=== PATIENT | female | born 1985 | race Caucasian/White ===

== ENCOUNTER 2017-04-05 10:01 | Emergency (ER) | payer OTHER ==
--- NOTE | ~2017-04-05 | US98 ---
[facility] A Service of [facility] & [facility] RADIOLOGY TEXT RESULTS PATIENT: MALINA TRIANA LOCATION: [facility] : 81 UNIT #: [id number] AGE: [address]: Elen Gonsales MD SEX: F ORDER DR: [id number] [facility] [address] [place], [place] [address] [id number] E MR#: [id number] Acc #: [id number] NAME: MALINA TRIANA : 1985 SEX: F STUDY DATE/TIME: 04/05/2017 11:39 UNIT: [facility] ROOM: STUDY DESCRIPTION: US Pelvic Non-OB Complete Attending Physician: Elen Gonsales M.D. Ordering Physician: Elen Gonsales M.D. Primary Care Physician: No Primary Care Physician MEDICAL IMAGING REPORT This report is preliminary unless electronic signature is present EXAM Pelvic ultrasound INDICATIONS Right lower quadrant pain for 5 days; it keeps getting worse. Patient has a history of an appendectomy. TECHNIQUE Jackson-scale, color Doppler, and spectral Doppler waveform analysis was performed through the pelvis both transabdominally and transvaginally. FINDINGS Endometrium appears thickened and heterogeneous, measuring up to about 1.4 cm. This may simply be related to the phase of menstrual cycle, but certainly is at the upper limits of normal. I would suggest short-term sonographic followup in 6 weeks. Both ovaries demonstrate normal color-Doppler flow. No adnexal masses are seen. Patient is noted to have follicles on both ovaries. IMPRESSION 1. Normal color Doppler flow is identified within both ovaries. No suspicious adnexal masses are seen. 2. Patient's endometrium is thickened and heterogeneous. This potentially may be related to the stage of the patient's menstrual cycle; however, it is borderline thickened and I would suggest short-term sonographic followup in 6 weeks. Dictated by... Chel Paul M.D. THIS IS AN ELECTRONICALLY VERIFIED REPORT Chel Paul M.D. at 04/05/2017 4:56 PM [facility] A Service of [facility] & [facility] RADIOLOGY TEXT RESULTS PATIENT: MALINA TRIANA [id number] [birth year] UNIT #: [id number] AGE: [address]: Elen Gonsales MD SEX: F ORDER DR: Kyrie TD: 04/05/2017 14:54 JOB #: [id number] MEDICAL IMAGING REPORT Page 1 of 1 COPY
[2017-04-05 11:16] LABS: URINE SOURCE CLEAN CATCH
[2017-04-05 11:22] LABS: BASOPHIL% 0.7 % (0-2.5); EOSINOPHIL# 0.1 X10e3 (0-0.7); EOSINOPHIL% 2.2 % (0.0-7.0); HEMATOCRIT 36.6 % (35.0-45.0); HEMOGLOBIN 11.9 gm/dL (12.0-16.0); LYMPHOCYTE# 2.2 X10e3 (1.0-3.5); LYMPHOCYTE% 41.8 % (17.0-45.0); MEAN CELL VOLUME 86.5 FL (83-96); MEAN CORPUSCULAR HEMOGLOBIN 28.2 PG (28-34); MEAN CORPUSCULAR HGB CONC 32.6 g/dL (30-36); MEAN PLATELET VOLUME 9.2 FL (6.5-11.5); MONOCYTE# 0.4 X10e3 (0-1.0); MONOCYTE% 8.3 % (3.0-12.0); NEUTROPHIL# 2.4 X10e3 (1.5-7.1); PLATELET COUNT 168 X10e3 (140-420); RED BLOOD COUNT 4.23 X10e (3.90-5.30); RED CELL DISTRIBUTION WIDTH 14.6 % (11.0-15.5); WHITE BLOOD COUNT 5.2 X10e3 (4.0-10.5)
[2017-04-05 11:25] LABS: URINE APPEARANCE CLEAR; URINE BILIRUBIN NEG (NEG); URINE BLOOD NEG (NEG); URINE COLOR YELLOW; URINE GLUCOSE NEG (NEG); URINE KETONE NEG (NEG); URINE LEUKOCYTE ESTERASE 1+ (NEG); URINE NITRATE NEG (NEG); URINE PH 5.5 (5-8); URINE PROTEIN NEG (NEG); URINE SPECIFIC GRAVITY 1.017 (1.003-1.035); URINE UROBILINOGEN 0.2 MG/DL (NEG)
[2017-04-05 11:26] LABS: DIFF IND NO
[2017-04-05 11:26] LABS: CULTURE INDICATED? YES; URBCS1 AUWI 0-2 /[HPF] (0-2); URINE BACTERIA AUWI 1+ (NEGATIVE); URINE SQUAMOUS EPITHELIAL CELL OCC /[HPF]
[2017-04-05 11:58] LABS: ALBUMIN SERUM 3.9 g/dL (3.5-5.0); BILIRUBIN, DIRECT 0.1 mg/dL (0.0-0.2); BILIRUBIN,INDIRECT 0.4 mg/dL (0.0-0.9); BILIRUBIN,TOTAL 0.5 mg/dL (0.2-2.0); BUN/CREATININE RATIO 13.33; CREATININE SERUM 0.6 mg/dL (0.6-1.4); GLOM FILT RATE Estimated 118.9 mL/min (>60); POTASSIUM 3.9 mmol/L (3.5-5.1); PROTEIN TOTAL SERUM 7.2 g/dL (6.0-8.3)
[2017-04-05 12:00] LABS: AMPHETAMINE NEG (NEG); BARBITURATES NEG (NEG); BENZODIAZEPINES POS (NEG); COCAINE NEG (NEG); MARIJUANA NEG (NEG); OPIATES POS (NEG); TRICYCLIC ANTIDEPRESSANTS POS (NEG); U METHADONE NEG (NEG)
[2017-04-06 21:28] LABS: CHLAMYDIA TRACH Not Detected (Not Detected); N GONOR Not Detected (Not Detected)
== END 2017-04-05 13:50 | disposition home or self-care (01) ==
LOC: CED 10:01
PROVIDERS: Emergency Medicine
DX: N73.9 Female pelvic inflammatory disease, unspecified (principal); F19.10 Other psychoactive substance abuse, uncomplicated; Z87.442 Personal history of urinary calculi; Z90.49 Acquired absence of other specified parts of digestive tract; Z88.8 Allergy status to other drugs, medicaments and biological substances
CPT/HCPCS: 36415; 76830; 76856; 80048; 80076; 80307; 81003; 84703; 85025; 87086; 87491; 87591; 87808; 87905; 96372; 99284; J0696

== ENCOUNTER 2017-05-06 10:38 | Emergency (ER) | payer OTHER ==
[~2017-05-06] VITALS: Ht 165.1 cm; Wt 86.2 kg
== END 2017-05-06 14:22 | disposition home or self-care (01) ==
LOC: CED 10:38
DX: K59.00 Constipation, unspecified (principal); N28.9 Disorder of kidney and ureter, unspecified; Z90.49 Acquired absence of other specified parts of digestive tract; Z98.51 Tubal ligation status; Z88.8 Allergy status to other drugs, medicaments and biological substances; Z88.6 Allergy status to analgesic agent; Z79.899 Other long term (current) drug therapy
CPT/HCPCS: 99284